=== PATIENT | male | born 1950 | race Caucasian/White ===

== ENCOUNTER 2024-07-20 14:11 | Inpatient (IN) | payer MEDICARE, BC ==
[~2024-07-20 14:11] MED LIST: Iopamidol 370 76% 100 ML VIAL ONE
[2024-07-20 15:01] LABS: ALT (SGPT) 25 U/L (8-55); AST (SGOT) 26 U/L (5-34); Albumin 2.7 g/dL (3.4-4.8); Alkaline Phosphatase 83 U/L (40-110); Anion Gap 14 mmol/L (10-20); BUN (Urea Nitrogen) 20 mg/dL (8.4-25.7); Bilirubin, Total 0.8 mg/dL (0.2-1.2); Calc. Creatinine Clearance 0 mL/min (70-130); Calcium 8.5 mg/dL (7.8-10.44); Carbon Dioxide 19 mmol/L (23-31); Chloride 107 mmol/L (98-107); Estimated GFR 55; Globulin 3.9 g/dL (2.4-3.5); Glucose 96 mg/dL (83-110); Potassium 3.9 mmol/L (3.5-5.1); Protein, Total 6.6 g/dL (5.8-8.1); Sodium 136 mmol/L (136-145)
[2024-07-20 15:02] LABS: #Basophils 0.04 10x3/uL (0.0-0.2); #Eosinophils 0.09 10x3/uL (0.0-0.5); #Monocytes 0.22 10x3/uL (0.0-1.1); #Neutrophils 9.05 10x3/uL (1.5-8.4); %Basophils 0.4 % (0.0-2.0); %Eosinophils 0.9 % (0.0-6.0); %Lymphocytes 5.8 % (18.0-47.0); %Monocytes 2.2 % (0.0-10.0); %Neutrophils 89.1 % (40.0-75.0); Hematocrit 34.1 % (38.8-50.0); Mean Corpuscular HGB CONC 35.2 g/dL (32.0-36.0); Mean Corpuscular Hemoglobin 33.1 pg (27.0-33.0); Mean Corpuscular Volume 93.9 fL (81.2-95.1); Mean Platelet Volume 9.2 fL (7.4-10.4); Platelet Count 222 10x3/uL (150-450); RBC Distribution Width 12.5 % (11.5-14.5); Red Blood Cell (RBC) Count 3.63 10x6/uL (4.32-5.72); White Blood Cell (WBC) Count 10.2 10x3/uL (3.5-10.5)
[2024-07-20 16:19] LABS: Bilirubin Neg (Negative); Blood, Urine 10 (Negative); Glucose, Urine (Dipstick) Normal (Negative); Ketone, Urine Negative (Negative); Leukocyte 25 (Negative); Nitrite Negative (Negative); Protein, Urine (Dipstick) 100 mg/dl (Neg-Trace); Urobilinogen Normal mg/dL (Less than 2)
[2024-07-20 16:22] LABS: Clarity Hazy (Clear)
[2024-07-20 16:36] LABS: CAUTI Indications for Culture Fever or rigors; Squamous Epithelial 0-3 HPF (0-3)
[2024-07-20 16:37] LABS: Bacteria/HPF 2+ HPF (None Seen); Mucous/LPF 3+ LPF (<2+)
[2024-07-20 16:38] LABS: White Blood Cell Cast 0-3 LPF (None Seen)
[2024-07-20 16:40] LABS: Urine Culture Reflex No No
[2024-07-20] MEDS ORDERED: cefTRIAXone (ROCEPHIN) 2 GM VIAL ONE (17:42)
[2024-07-20] MEDS ORDERED: Senokot S 8.6-50 MG TAB PO PRN (19:26)
[2024-07-20] MEDS ORDERED: Calcium Carbonate 500 MG ChewTAB PO PRN (19:26)
[2024-07-20 19:35] LABS: Troponin I Less than 0.010 ng/mL (< 0.028)
[2024-07-20] MEDS ORDERED: Clopidogrel Bisulfate 75 MG TAB ONE (20:42)
[2024-07-20] MEDS ORDERED: Famotidine 20 MG TAB ONE (20:42)
[2024-07-20] MEDS ORDERED: Cefepime 2 GM VIAL ONE (20:42)
[2024-07-20] MEDS ORDERED: Atorvastatin Calcium 40 MG TAB ONE (20:42)
[2024-07-20] MEDS: Cefepime 2 GM in Sodium Chloride 0.9% 100 ML IVPB SCH (21:05)
[2024-07-20] MEDS: Famotidine 20 MG TAB PO SCH (21:05)
[2024-07-20] MEDS: Lactated Ringer's 500 ML IV SCH (21:05)
[2024-07-20] MEDS: Escitalopram Oxalate 10 mg Tablet PO SCH (21:05)
[2024-07-20] MEDS: Atorvastatin Calcium 40 MG TAB PO SCH (21:05)
[2024-07-20] MEDS: Clopidogrel Bisulfate 75 MG TAB PO SCH (21:05)
[2024-07-20] MEDS ORDERED: diphenhydrAMINE 12.5 MG/5 ML UDCUP PO PRN (21:47)
[2024-07-20] MEDS ORDERED: diphenhydrAMINE 25 MG CAP ONE (21:57)
[2024-07-20] MEDS ORDERED: Acetaminophen 325 MG TAB ONE (23:15)
[2024-07-20] MEDS: diphenhydrAMINE 25 MG CAP PO PRN (23:22)
[2024-07-20] MEDS: Acetaminophen 325 MG TAB PO PRN (23:24)
[2024-07-20 23:26] LABS: Influenza A by NAA Not Detected (NotDetected); Influenza B by NAA Not Detected (NotDetected); RSV by NAA Not Detected (NotDetected); SARS-CoV-2 NAA Rapid Test Not Detected (NotDetected)
[2024-07-21 04:37] LABS: Anion Gap 14 mmol/L (10-20); BUN (Urea Nitrogen) 20 mg/dL (8.4-25.7); Calc. Creatinine Clearance 61 mL/min (70-130); Calcium 8.9 mg/dL (7.8-10.44); Carbon Dioxide 19 mmol/L (23-31); Chloride 110 mmol/L (98-107); Estimated GFR 53; Glucose 97 mg/dL (83-110); Potassium 3.9 mmol/L (3.5-5.1); Sodium 139 mmol/L (136-145)
[2024-07-21 04:45] LABS: Troponin I 0.078 ng/mL (< 0.028)
[2024-07-21] MEDS ORDERED: Acetaminophen 325 MG TAB ONE (07:25)
[2024-07-21] MEDS: Aspirin 81 mg Enteric Coated Tablet PO SCH (10:37)
[2024-07-21] MEDS: Enoxaparin 40 MG (0.4 mL) SYRINGE SC SCH (10:37)
[2024-07-21] MEDS: Lactated Ringer's 500 ML IV SCH (10:39)
[2024-07-21] MEDS: Morphine 4 MG/ML VIAL ONE (15:12)
[2024-07-21 15:16] VITALS: BMI 30.2
[2024-07-21 15:40] LABS: ALT (SGPT) 30 U/L (8-55); AST (SGOT) 31 U/L (5-34); Albumin 3.1 g/dL (3.4-4.8); Alkaline Phosphatase 93 U/L (40-110); Anion Gap 18 mmol/L (10-20); BUN (Urea Nitrogen) 17 mg/dL (8.4-25.7); Bilirubin, Total 0.7 mg/dL (0.2-1.2); Calc. Creatinine Clearance 60 mL/min (70-130); Calcium 9.1 mg/dL (7.8-10.44); Carbon Dioxide 17 mmol/L (23-31); Chloride 109 mmol/L (98-107); Estimated GFR 51; Globulin 3.8 g/dL (2.4-3.5); Glucose 81 mg/dL (83-110); Potassium 4.2 mmol/L (3.5-5.1); Protein, Total 6.9 g/dL (5.8-8.1); Sodium 140 mmol/L (136-145)
[2024-07-21 15:41] LABS: #Basophils 0.07 10x3/uL (0.0-0.2); #Eosinophils 0.29 10x3/uL (0.0-0.5); #Monocytes 0.89 10x3/uL (0.0-1.1); #Neutrophils 14.57 10x3/uL (1.5-8.4); %Basophils 0.4 % (0.0-2.0); %Eosinophils 1.6 % (0.0-6.0); %Lymphocytes 11.3 % (18.0-47.0); %Neutrophils 81.3 % (40.0-75.0); Hematocrit 38.9 % (38.8-50.0); Hemoglobin 13.3 g/dL (13.5-17.5); Mean Corpuscular HGB CONC 34.2 g/dL (32.0-36.0); Mean Corpuscular Hemoglobin 32.7 pg (27.0-33.0); Mean Corpuscular Volume 95.6 fL (81.2-95.1); Mean Platelet Volume 9.1 fL (7.4-10.4); Platelet Count 240 10x3/uL (150-450); RBC Distribution Width 12.9 % (11.5-14.5); Red Blood Cell (RBC) Count 4.07 10x6/uL (4.32-5.72); White Blood Cell (WBC) Count 17.9 10x3/uL (3.5-10.5)
[2024-07-21] MEDS: LevoFLOXacin 750 mg/D5W 750 MG in Premix 1 BAG IVPB SCH (16:19)
[2024-07-21] MEDS: Ondansetron PF 4 MG/2 ML Vial IVP PRN (16:56)
[2024-07-21] MEDS: Ketorolac Tromethamine 30 MG (1 mL) VIAL IVP SCH (21:20)
[2024-07-21] MEDS: Ketorolac Tromethamine 30 MG (1 mL) VIAL ONE (21:27)
[2024-07-22] MEDS: Zolpidem Tartrate 5 MG TAB PO SCH (00:23)
[2024-07-22 04:29] LABS: Critical Call Chem Troponin I NUR.ZNA@0429; Troponin I 0.434 ng/mL (< 0.028)
[2024-07-22] MEDS: Metoprolol Tartrate 25 MG TAB PO SCH (09:43)
[2024-07-22 12:53] LABS: Hematocrit 36.2 % (38.8-50.0); Hemoglobin 11.9 g/dL (13.5-17.5); Mean Corpuscular HGB CONC 32.9 g/dL (32.0-36.0); Mean Corpuscular Hemoglobin 31.6 pg (27.0-33.0); Mean Platelet Volume 9.6 fL (7.4-10.4); Platelet Count 205 10x3/uL (150-450); RBC Distribution Width 12.9 % (11.5-14.5); Red Blood Cell (RBC) Count 3.77 10x6/uL (4.32-5.72); White Blood Cell (WBC) Count 25.2 10x3/uL (3.5-10.5)
[2024-07-22 12:59] LABS: MDiff Complete? YES
[2024-07-22 13:35] LABS: Neutrophil 94 % (42-75)
[2024-07-22 13:38] LABS: Lymphocytes 3 % (21-51); Monocytes 2 % (0-10)
[2024-07-22 13:39] LABS: Eosinophils 1 % (0-10); Platelet Adequacy Comment Appears Adequate; RBC Morph Comment Within Normal Limits
[2024-07-22] MEDS: Sodium Chloride 0.9% 1,000 ML IV SCH (16:22)
[2024-07-22] MEDS: Sodium Chloride 0.9% 1,000 ML IV ONE (17:00)
[2024-07-22] MEDS: Zolpidem Tartrate 5 MG TAB PO PRN (21:36)
[2024-07-23 03:52] LABS: #Basophils 0.05 10x3/uL (0.0-0.2); #Eosinophils 0.16 10x3/uL (0.0-0.5); #Monocytes 1.01 10x3/uL (0.0-1.1); #Neutrophils 16.44 10x3/uL (1.5-8.4); %Basophils 0.3 % (0.0-2.0); %Eosinophils 0.8 % (0.0-6.0); %Lymphocytes 6.9 % (18.0-47.0); %Monocytes 5.3 % (0.0-10.0); %Neutrophils 86.1 % (40.0-75.0); Hematocrit 32.2 % (38.8-50.0); Hemoglobin 11.1 g/dL (13.5-17.5); Mean Corpuscular HGB CONC 34.5 g/dL (32.0-36.0); Mean Corpuscular Hemoglobin 32.2 pg (27.0-33.0); Mean Corpuscular Volume 93.3 fL (81.2-95.1); Mean Platelet Volume 9.4 fL (7.4-10.4); Platelet Count 201 10x3/uL (150-450); RBC Distribution Width 12.9 % (11.5-14.5); Red Blood Cell (RBC) Count 3.45 10x6/uL (4.32-5.72); White Blood Cell (WBC) Count 19.1 10x3/uL (3.5-10.5)
[2024-07-23 04:03] LABS: Anion Gap 13 mmol/L (10-20); BUN (Urea Nitrogen) 20 mg/dL (8.4-25.7); Calc. Creatinine Clearance 74 mL/min (70-130); Carbon Dioxide 19 mmol/L (23-31); Chloride 110 mmol/L (98-107); Estimated GFR 66; Glucose 94 mg/dL (83-110); Sodium 138 mmol/L (136-145)
[2024-07-23 10:34] LABS: Troponin I 0.085 ng/mL (< 0.028)
[2024-07-23] MEDS: Sodium Chloride 0.9% 1,000 ML IV SCH (13:30)
[2024-07-24 04:18] LABS: Anion Gap 13 mmol/L (10-20); BUN (Urea Nitrogen) 18 mg/dL (8.4-25.7); Calc. Creatinine Clearance 86 mL/min (70-130); Calcium 8.9 mg/dL (7.8-10.44); Carbon Dioxide 18 mmol/L (23-31); Chloride 110 mmol/L (98-107); Estimated GFR 79; Glucose 94 mg/dL (83-110); Potassium 3.6 mmol/L (3.5-5.1); Sodium 137 mmol/L (136-145)
[2024-07-24 04:21] LABS: #Basophils 0.04 10x3/uL (0.0-0.2); #Eosinophils 0.24 10x3/uL (0.0-0.5); #Neutrophils 10.64 10x3/uL (1.5-8.4); %Basophils 0.3 % (0.0-2.0); %Eosinophils 1.8 % (0.0-6.0); %Lymphocytes 10.9 % (18.0-47.0); %Monocytes 5.3 % (0.0-10.0); %Neutrophils 81.1 % (40.0-75.0); Hematocrit 33.9 % (38.8-50.0); Hemoglobin 11.5 g/dL (13.5-17.5); Mean Corpuscular HGB CONC 33.9 g/dL (32.0-36.0); Mean Corpuscular Hemoglobin 31.5 pg (27.0-33.0); Mean Corpuscular Volume 92.9 fL (81.2-95.1); Mean Platelet Volume 9.3 fL (7.4-10.4); Platelet Count 203 10x3/uL (150-450); RBC Distribution Width 12.8 % (11.5-14.5); Red Blood Cell (RBC) Count 3.65 10x6/uL (4.32-5.72); White Blood Cell (WBC) Count 13.1 10x3/uL (3.5-10.5)
[2024-07-24] MEDS: LevoFLOXacin 750 MG TAB PO SCH (17:32)
[2024-07-25 04:12] LABS: #Basophils 0.05 10x3/uL (0.0-0.2); #Monocytes 0.66 10x3/uL (0.0-1.1); #Neutrophils 7.61 10x3/uL (1.5-8.4); %Basophils 0.5 % (0.0-2.0); %Eosinophils 1.9 % (0.0-6.0); %Lymphocytes 16.6 % (18.0-47.0); %Monocytes 6.4 % (0.0-10.0); %Neutrophils 74.2 % (40.0-75.0); Hematocrit 34.5 % (38.8-50.0); Hemoglobin 11.9 g/dL (13.5-17.5); Mean Corpuscular HGB CONC 34.5 g/dL (32.0-36.0); Mean Corpuscular Hemoglobin 32.3 pg (27.0-33.0); Mean Corpuscular Volume 93.8 fL (81.2-95.1); Mean Platelet Volume 9.4 fL (7.4-10.4); Platelet Count 237 10x3/uL (150-450); RBC Distribution Width 12.8 % (11.5-14.5); Red Blood Cell (RBC) Count 3.68 10x6/uL (4.32-5.72); White Blood Cell (WBC) Count 10.3 10x3/uL (3.5-10.5)
[2024-07-25 04:31] VITALS: TEMP 98.2
[2024-07-25] MEDS: LevoFLOXacin 750 MG TAB PO SCH (05:56)
[2024-07-25 09:01] VITALS: BP 135/79
== END 2024-07-25 09:51 | disposition home or self-care (01) | DRG 871 ==
LOC: CSHERS 14:11 → CSHERHOLD 18:14 → OBSVTOIN 19:29 → CSHTELE 07-21 08:30
PROVIDERS: ADMIT Internal Medicine; ATTEND Family Medicine
DX: A41.9 Sepsis, unspecified organism (principal); I21.A1 Myocardial infarction type 2; N10 Acute pyelonephritis; N17.9 Acute kidney failure, unspecified; E78.00 Pure hypercholesterolemia, unspecified; Z98.890 Other specified postprocedural states; Z79.899 Other long term (current) drug therapy; E78.5 Hyperlipidemia, unspecified; I25.10 Atherosclerotic heart disease of native coronary artery without angina pectoris; Z95.1 Presence of aortocoronary bypass graft; Z79.82 Long term (current) use of aspirin; N18.9 Chronic kidney disease, unspecified; I12.9 Hypertensive chronic kidney disease with stage 1 through stage 4 chronic kidney disease, or unspecified chronic kidney disease
CPT/HCPCS: 0241U; 36415; 71045; 71275; 74150; 74178; 80048; 80053; 81001; 83605; 83880; 84484; 85025; 86140; 86141; 87040; 87081; 93005; 93010; 96374; J0692; J0696; J1650; J1885; J1956; J2272; J2405; J7030; J7120; Q9967